=== PATIENT | female | born 1980 | race Caucasian/White ===

== ENCOUNTER 2024-04-25 23:10 | Emergency (ER) | payer BC, SELFPAY ==
[2024-04-25 23:19] VITALS: BP 146/98
--- NOTE | 2024-04-26 00:31 | ED.GENMED ---
History of Present Illness
<LATASHA Berman - Last Filed: 04/26/24 05:25>
General
Chief Complaint: Weakness
Source: patient
Exam Limitations: none
Time Seen by Provider: 04/26/24 00:30
Nursing documentation reviewed up to this point in time: agreed with
History of Present Illness
History of Present Illness:
Patient is a 43 yo F w/ PMH of fibromyalgia who presents to the ED complaining of weakness x 9 hrs. States after lunch she started to feel generally unwell and continued to worsen. Reports fatigue,weakness, and nausea. Feels shaky and jittery. Fell
asleep for a few hours even though napping is unusual for her. Notes baseline level of fatigue but states this is worse. Reports B/L pounding JOYCE that started around 3pm, continued after nap, and was relieved some by Advil (at 6pm). Notes associated
visual blurriness R>L. Reports dizziness on standing since episode began. Reports 1 episode of diarrhea around 5/6pm. Reports arm pain that started around 9 pm. Started on L but now B/L. States pain feels connected by neck. Describes sharp pain in
shoulder that radiates to wrist. States pain has worsened and is now sharp from shoulder to wrist.
Past History
<LATASHA Berman - Last Filed: 04/26/24 05:25>
Past History
ED Past Medical History: None
ED Past Surgical History:
Social History
Tobacco: Smoker
Alcohol: Occasional
Personal:
Living: with family
Employment: Employed
Review of Systems
<LATASHA Berman - Last Filed: 04/26/24 05:25>
Review of Systems
Constitutional: Reports fatigue; Denies fever or chills
EENT: Denies sore throat, runny nose or other (congestion)
Respiratory: Denies cough or trouble breathing
Cardiac: Denies chest pain or palpitations
ABD/GI: Reports nausea and diarrhea; Denies abdominal pain or vomiting
: Denies dysuria, frequency or urgency
Musculoskeletal: Reports joint pain, muscle pain and neck pain; Denies joint swelling, muscle stiffness or edema
Skin: Denies itching or rash
Neurological: Reports dizzy, headache, weakness and numbness
Phy Exam
<Julianna Baez [facility] - Last Filed: 04/26/24 05:25>
General Physical Exam
General Presentation: well appearing
General age: appears stated age
General Skin: warm
General Mental: alert
ENT Exam
ENT Exam: pharynx normal
Eye Exam
Eye Exam: PERRL and conjunctiva normal
Cardiovascular Exam
Cardiovascular Exam: regular rate/rhythm, no edema, no gallop and no murmur
Pulmonary Exam
Pulmonary Exam: lungs clear, no respiratory distress, no rales, no crackles, no rhonchi and no wheezing
Gastrointestinal Exam
Gastrointestinal Exam: normal bowel sounds, non tender, soft, no organomegaly, non distended and no masses
Neurological Exam
Neurological Exam: alert, oriented x3, no motor deficits, no sensory deficits and speech normal
Motor
Bilateral upper extremities: 5
Bilateral lower extremities: 5
Musculoskeletal Exam
Musculoskeletal Exam: no edema
Course
<Julianna Baez [facility] - Last Filed: 04/26/24 05:25>
Orders/Labs/Results
Orders:
Orders
04/25/24 23:11
EKG [Electrocardiogram (*1)] Urgent
Reason for Study: Fatigue / Weakness
04/25/24 23:12
EKG- Treatment ONCE
04/26/24 01:17
Test Result ONCE
04/26/24 01:18
Encourage PO Hydration-Treatme ONCE
Acetaminophen [Tylenol] 1,000 mg PO NOW STA
04/26/24 01:33
Complete Blood Count/With Diff Urgent
Sed Rate [Erythrocyte Sed Rate] Urgent
TSH Reflex To Free T4 Urgent
Troponin I Urgent
Urinalysis Reflex To Culture Urgent
Date Specimen was Collected: 04/26/24
Time Specimen was Collected: 01:26
04/26/24 02:07
C-Reactive Protein Urgent
Comprehensive Metabolic Panel Urgent
HCG, Serum Qualitative Screen Urgent
Abnormal Lab Results
04/26/24 04/26/24
01:33 02:07
MCH 32.4 H pg
(27.0-31.0)
MPV 10.6 H fL
(7.4-10.4)
Carbon Dioxide 21 L mmol/L
(22-30)
BUN 20 H mg/dl
(7-17)
Glucose 101 H mg/dl
(70-99)
04/26/24 01:33
04/26/24 02:07
Vital Signs
Initial and Last Documented VS:
Initial Vital Signs
Temp Pulse Resp BP Pulse Ox
98.3 F 76 17 146/98 99
04/25/24 23:19 04/25/24 23:19 04/25/24 23:19 04/25/24 23:19 04/25/24 23:19
Last Documented Vital Signs
Temp Pulse Resp BP Pulse Ox
99.1 F 78 16 127/86 99
04/26/24 01:24 04/26/24 01:48 04/26/24 01:48 04/26/24 01:48 04/26/24 01:48
<Kacy Loya, DO - Last Filed: 04/26/24 03:07>
Orders/Labs/Results
Orders:
Orders
04/25/24 23:11
EKG [Electrocardiogram (*1)] Urgent
Reason for Study: Fatigue / Weakness
04/25/24 23:12
EKG- Treatment ONCE
04/26/24 01:17
Test Result ONCE
04/26/24 01:18
Encourage PO Hydration-Treatme ONCE
Acetaminophen [Tylenol] 1,000 mg PO NOW STA
04/26/24 01:33
Complete Blood Count/With Diff Urgent
Sed Rate [Erythrocyte Sed Rate] Urgent
TSH Reflex To Free T4 Urgent
Troponin I Urgent
Urinalysis Reflex To Culture Urgent
Date Specimen was Collected: 04/26/24
Time Specimen was Collected: 01:26
04/26/24 02:07
C-Reactive Protein Urgent
Comprehensive Metabolic Panel Urgent
HCG, Serum Qualitative Screen Urgent
Abnormal Lab Results
04/26/24 04/26/24
01:33 02:07
MCH 32.4 H pg
(27.0-31.0)
MPV 10.6 H fL
(7.4-10.4)
Carbon Dioxide 21 L mmol/L
(22-30)
BUN 20 H mg/dl
(7-17)
Glucose 101 H mg/dl
(70-99)
04/26/24 01:33
04/26/24 02:07
Vital Signs
Temp: 99.1 F
Initial and Last Documented VS:
Initial Vital Signs
Temp Pulse Resp BP Pulse Ox
98.3 F 76 17 146/98 99
04/25/24 23:19 04/25/24 23:19 04/25/24 23:19 04/25/24 23:19 04/25/24 23:19
Last Documented Vital Signs
Temp Pulse Resp BP Pulse Ox
99.1 F 78 16 127/86 99
04/26/24 01:24 04/26/24 01:48 04/26/24 01:48 04/26/24 01:48 04/26/24 01:48
<LATASHA Berman - Last Filed: 04/26/24 05:25>
*Critical Care Note
Total Time (30-74mins, 75-104mins- exclusive of procedures): Not Applicable
<Kacy Loya DO - Last Filed: 04/26/24 03:07>
*Pulse Oximetry
Patient hypoxic: no
*EKG
Interpreted by ED Provider?: Yes
Interpretation: normal
Comparison EKG: no comparison EKG present
Rate: normal
Rhythm: sinus
Clarence: normal axis
Interval: normal interval
QRS Pattern: normal QRS
Ischemia: no ischemia
*Issuer Interpretation
Rate: normal
Interpretation: normal
Rhythm: sinus
ED Attending Note
<LATASHA Berman - Last Filed: 04/26/24 05:25>
-
Portions of this chart may have been created with voice recognition software.� Occasional wrong word or��sound alike� substitutions may have occurred due to the inherent limitations of voice recognition software.
<DO Elizabeth Art Last Filed: 04/26/24 03:07>
ED Attending Note
Patient seen and examined by attending physician: Yes
I performed the substantive portion of visit, reviewed & personally made and approve the management plan that is documented in note by myself or GWYN.: Yes
ED Attending Note:
This is a 43-year-old woman who has history of fibromyalgia, irritable bowel syndrome with diarrhea, PCOS, migraine headaches who presents tonight with complaints of overall not feeling well, mild nausea, generalized fatigue, myalgias, mild
headache. Symptoms all began mildly this afternoon but have progressed throughout the evening and tonight around 9 PM developed bilateral shoulder pain and pain across her shoulders. She denies chest pain, no cough no shortness of breath, no nasal
congestion or sore throat nor ear pain. She denies abdominal pain but does note mild nausea without vomiting and had 1 episode of loose nonbloody stool around 6 PM tonight.
She denies dysuria and urgency nor hematuria. No flank pain. She does note urinary frequency which is somewhat chronic and she attributes to attempting to stay well-hydrated on a daily basis.
No rash, no recent travel, no close contacts with similar symptoms.
She does have history of 1 previous UTI/pyelonephritis�did not require hospitalization.
Last menstrual period April 08 and normal and on time. Reports undergoing unremarkable HAND [employer]IL[employer] exam April 11.
Her daily medications include: Spironolactone, folic acid, duloxetine, Viberzi, Ozempic, vitamin D. Patient states she has been maintained on Ozempic for a number of years for PCOS and irritable bowel with diarrhea. No recent change in her dose.
Records reveal unremarkable CT of the head 2011, performed due to headaches.
GENERAL: Alert , in no apparent distress. 43-year-old woman appears her stated age, bright and alert, pleasant, appears in no acute distress. is accompanying. Low-grade fever noted 99.1 �F
EYE: pupils equal and reactive. anicteric
NECK: Supple, nontender, no meningismus, no significant adenopathy.
ENT: posterior pharynx is clear, oral mucosa is moist. TM clear b/l, nares patent.
CARDIAC: Regular rate and rhythm. no murmur.
LUNGS: Clear breath sounds bilaterally, no acute respiratory distress, no wheezes/rales/rhonchi
ABDOMEN: Soft, nondistended, without focal tenderness, no r/g, no cvat. normoactive BS.
NEUROLOGICAL: Alert and oriented x3, no focal neuro deficits. Gait is steady.
SKIN: Warm and dry, normal color, skin intact. No rash.
MUSCULOSKELETAL: No C/C/E. peripheral pulses are full and equal b/l. No palpable tenderness.
PSYCH: Normal and appropriate interaction.
Borderline low-grade fever noted, concern for viral syndrome, occult UTI, exacerbation fibromyalgia, migraine headache, gastroenteritis, less likely ACS.
EKG is unremarkable showing normal sinus rhythm, no evidence of ACS on EKG.
Will check labs and urinalysis, inflammatory markers, TSH.
Will give Tylenol for low-grade fever and encourage oral fluids.
04/26/2024 0304 AM
Overall patient feeling improved. Resting comfortably.
Labs are all unremarkable. Urinalysis is unremarkable.
I suspect acute viral syndrome versus exacerbation of fibromyalgia.
Will discharge to home with recommendations that she stay well-hydrated on a daily basis, Tylenol versus ibuprofen as needed for pain, fever.
Prompt follow-up with PCP for recheck.
Discharge Plan
Departure
Patient Disposition: Home (Routine Discharge)
Date of Disposition: 04/26/24
Time of Disposition: 03:05
Patient with high blood pressure during this ER visit?: No
Condition: Good
Discharge Problem:
Acute viral syndrome
Instructions: Fibromyalgia (DC), Fever, Adult ED
Prescriptions:
No Action
spironolactone 25 MG tablet
25 mg PO DAILY
Referrals:
Opal Bob, [Family Provider] - Call in 1-3 days for appt
Interventions
Interventions:
*Risk Screen - Suicide Last Done: 04/25/24 23:19
*General Assessment Last Done: 04/26/24 01:45
*Neglect/Abuse Screening Last Done: 04/26/24 00:26
*ED COVID-19 Vaccine History Last Done: 04/26/24 01:45
*Nursing Disposition Last Done: 04/26/24 03:10
ED- Cardiac Assessment Last Done: 04/26/24 01:45
ED- Neurological Assessment Last Done: 04/26/24 01:45
ED- Pulmonary Assessment Last Done: 04/26/24 01:45
Discharge Date and Time
Discharge Date/Time: 04/26/24 03:15
Print Language: [place]
[2024-04-26] MEDS: TYLENOL 1000 MG PO (01:37)
[2024-04-26 01:42] LABS: Urine Albumin Negative (Neg - Trace); Urine Bilirubin Negative (Negative); Urine Character Slightly Cloudy (Clear); Urine Color Yellow; Urine Glucose Negative (Negative); Urine Ketone Negative (Negative); Urine Leukocyte Negative (Negative); Urine Nitrite Negative (Negative); Urine Occult Blood Negative (Negative); Urine Specific Gravity 1.025 (<1.030); Urine Urobilinogen Negative (Neg - 1+)
[2024-04-26 01:44] LABS: % Basophils 0.7 % (0-2); % Eosinophils 3.3 % (0-6); % Immature Granulocytes 0.1 % (0-0.5); % Monocytes 5.7 % (1.7-9.3); % Neutrophils 66.2 % (42.2-75.2); Absolute Basophils 0.1 10^3/uL (0-0.2); Absolute Eosinophils 0.3 10^3/uL (0-0.7); Absolute Lymphocytes 2.2 10^3/uL (1.2-3.4); Absolute Monocytes 0.5 10^3/uL (0.1-0.6); Absolute Neutrophils 6.1 10^3/uL (1.4-6.5); Hemoglobin 13.6 g/dL (12.0-16.0); Mean Corp Hgb Conc. 36.8 g/dL (33.0-37.0); Mean Corpuscular Hgb 32.4 pg (27.0-31.0); Mean Corpuscular Volume 88.1 fL (81.0-99.0); Mean Platelet Volume 10.6 fL (7.4-10.4); Nucleated Red Blood Cells % 0 %; Platelet Count 289 10^3/uL (130-400); Red Cell Dist. Width 11.9 % (11.5-14.5); White Blood Cell Count 9.1 10^3/uL (4.8-10.8)
[2024-04-26 01:48] VITALS: BP 127/86; BMI 33.1
[2024-04-26 02:08] LABS: Erythrocyte Sed Rate 14 mm/hour (0-20)
[2024-04-26 02:12] LABS: Troponin I < 0.012 ng/ml
[2024-04-26 02:32] LABS: HCG, Serum Qualitative Screen Negative
[2024-04-26 02:32] LABS: TSH Reflex To Free T4 2.05 uIU/ml (0.47-4.68)
[2024-04-26 02:36] LABS: ALT (SGPT) 16 U/L (0-35); AST (SGOT) 18 U/L (14-36); Albumin 4.3 g/dl (3.5-5.0); Alkaline Phosphatase 53 U/L (38-126); Blood Urea Nitrogen 20 mg/dl (7-17); Calcium 9.4 mg/dl (8.4-10.2); Carbon Dioxide 21 mmol/L (22-30); Chloride 104 mmol/L (98-107); Estimated Creatinine Clearance 105 ml/min; Glucose 101 mg/dl (70-99); Potassium 4.1 mmol/L (3.5-5.1); Sodium 136 mmol/L (135-145); Total Bilirubin 0.6 mg/dl (0.2-1.3); Total Protein 6.7 g/dl (6.3-8.2); eGFR > 60.00
== END 2024-04-26 03:15 | disposition home or self-care (01) ==
LOC: EMR 23:10
PROVIDERS: EMERGENCY PHYSICIAN Emergency Medicine; FAMILY PHYSICIAN Family Medicine
DX: B34.9 Viral infection, unspecified (principal); F17.200 Nicotine dependence, unspecified, uncomplicated; M79.7 Fibromyalgia
CPT/HCPCS: 99284; 80053; 81003; 84443; 84484; 84703; 85025; 85652; 86140; 93005

== ENCOUNTER → 2024-06-04 08:49 | Outpatient (REF) | payer BC, SELFPAY | LOC: HWWDC 08:49 | PROVIDERS: ATTENDING PHYSICIAN Nurse Practitioner Family; FAMILY PHYSICIAN Family Medicine | DX: Z12.31 Encounter for screening mammogram for malignant neoplasm of breast (principal) | CPT/HCPCS: 77063; 77067 ==

== ENCOUNTER → 2024-07-23 13:21 | Outpatient (REF) | payer BC, SELFPAY | LOC: MRI 3T 13:21 | PROVIDERS: ATTENDING PHYSICIAN Student in an Organized Health Care Education/Training Program; FAMILY PHYSICIAN Family Medicine | DX: S76.011A Strain of muscle, fascia and tendon of right hip, initial encounter (principal) | CPT/HCPCS: 27093; 73525; 73722 ==

== ENCOUNTER → 2024-08-07 12:40 | Outpatient (REF) | payer BC, SELFPAY | LOC: RAD 12:40 | PROVIDERS: ATTENDING PHYSICIAN Nurse Practitioner Family; FAMILY PHYSICIAN Family Medicine | DX: D25.9 Leiomyoma of uterus, unspecified (principal) | CPT/HCPCS: 76830; 76856 ==

== ENCOUNTER → 2024-12-19 09:20 | Outpatient (REF) | payer BC, SELFPAY | LOC: RAD 09:20 | PROVIDERS: ATTENDING PHYSICIAN Nurse Practitioner Adult Health | DX: R10.9 Unspecified abdominal pain (principal); N39.0 Urinary tract infection, site not specified | CPT/HCPCS: 74018 ==

== ENCOUNTER → 2024-12-30 09:27 | Outpatient (REF) | payer BC, SELFPAY | LOC: HWRAD 09:27 | PROVIDERS: ATTENDING PHYSICIAN Nurse Practitioner Adult Health | DX: R10.9 Unspecified abdominal pain (principal); R31.29 Other microscopic hematuria | CPT/HCPCS: 76770 ==

== ENCOUNTER → 2025-04-10 10:27 | Outpatient (REF) | payer BC, SELFPAY | LOC: HWRAD 10:27 | PROVIDERS: ATTENDING PHYSICIAN Student in an Organized Health Care Education/Training Program; FAMILY PHYSICIAN Family Medicine | DX: Z30.431 Encounter for routine checking of intrauterine contraceptive device (principal) | CPT/HCPCS: 76830; 76856 ==